=== PATIENT | female | born 1935 | race Caucasian/White ===

== ENCOUNTER 2020-05-10 11:32 | Observation (INO) | payer OTHER ==
[2020-05-10 11:50] VITALS: BMI 25.2
[2020-05-10] MEDS ORDERED: ACETAMINOPHEN 325 MG TABLET PO PRN (11:54)
[2020-05-10] MEDS ORDERED: LOPERAMIDE HCL 2 MG CAPSULE PO PRN (11:55)
[2020-05-10] MEDS ORDERED: DIPHENHYDRAMINE 25 MG TAB/CAP PO PRN (11:55)
[2020-05-10] MEDS ORDERED: ONDANSETRON 4 MG/2 ML VIAL IV PRN (11:55)
[2020-05-10] MEDS ORDERED: ONDANSETRON 4 MG (ODT) TAB PO PRN (11:57)
[2020-05-10] MEDS ORDERED: POLYETHYL GLY 3350 17 GM/DOSE PO PRN (11:57)
[2020-05-10] MEDS ORDERED: METHOCARBAMOL PO PRN (13:11)
[2020-05-10 13:46] LABS: Absolute Lymphocytes (CBC) 1.6 K/uL (0.7-4.9); Basophils % 0.7 % (0-1.3); Hematocrit 39.8 % (36.0-45.0); Lymphocytes % 25.2 % (15.3-44.8); MPV 8.7 fL (7.6-11.3); RBC Red Blood Cell Count 4.55 M/uL (3.86-4.86)
[2020-05-10 13:48] LABS: Protime INR 1.1
[2020-05-10 14:06] LABS: Albumin 3.8 g/dL (3.4-5.0); Bilirubin Direct 0.1 mg/dL (0-0.2); Bilirubin Total 0.6 mg/dL (0.2-1.0); C-Reactive Protein 13.8 mg/L (<3.00); Magnesium 2.2 mg/dL (1.8-2.4); Phosphorus 3.9 mg/dL (2.5-4.9); Potassium 4.2 mmol/L (3.5-5.1); Protein, Total 8.1 g/dL (6.4-8.2); Thyroid Stimulating Hormone 1.03 uIU/mL (0.360-3.740)
--- NOTE | 2020-05-10 15:04 | RAD REPORT ---
EXAM DESCRIPTION: CT - Chest For Pe Angio - 05/10/2020 2:35 pm CLINICAL HISTORY: sob COMPARISON: April 26, 2020 chest x-ray TECHNIQUE: Dynamically enhanced axial 3 mm thick images of the chest were obtained during administra tion of <100> mL Isovue 370 IV contrast. Coronal and oblique reconstruction images were generated and reviewed. Exam utilizes a protocol for optimal evaluation of pulmonary arterial tree. Maximum intensity projections 3D imaging was utilized All CT scans are performed using dose optimization technique as appropriate and may include automated exposure control or mA/KV adjustment according to patient size. FINDINGS: A pulmonary embolus is not seen. A thoracic aortic aneurysm is not noted. Main pulmonary artery appears mildly enlarged. This may ricardo quintin pulmonary arterial hypertension. The heart is enlarged A pleural effusion is not seen. A pericardial effusion is not seen. A lung consolidation is not present. IMPRESSION: Negative for a pulmonary embolism.
[2020-05-10 16:42] LABS: Urine Appearance CLEAR; Urine Bilirubin NEGATIVE (NEG); Urine Blood NEGATIVE (NEG); Urine Color YELLOW; Urine Glucose NEGATIVE (NEG); Urine Protein NEGATIVE (NEG); Urine Specific Gravity 1.025 (1.005-1.030); Urine Urobilinogen 0.2 mg/dL (0.2-1.0); Urine pH 6.5 (5.0-7.0)
[2020-05-10 16:45] LABS: Urine Microscopic Reflex ORDER UMIC
[2020-05-10 16:57] LABS: Urine Bacteria <20 /HPF (<20); Urine Mucus 1+ /HPF (NONE SEEN); Urine RBC <5 /HPF (NONE SEEN)
[2020-05-10] MEDS ORDERED: ENOXAPARIN 40 MG/0.4 ML SQ SCH (17:00)
[2020-05-10] MEDS ORDERED: DORZOLAMIDE HCL OP SCH (21:00)
[2020-05-10] MEDS ORDERED: CARVEDILOL PO SCH (21:00)
[2020-05-10] MEDS ORDERED: GABAPENTIN PO SCH (21:00)
[2020-05-10] MEDS: FUROSEMIDE 20 MG/ 2ML VIAL IV SCH (22:07)
[2020-05-11 05:38] LABS: Absolute Lymphocytes (CBC) 1.9 K/uL (0.7-4.9); Basophils % 0.9 % (0-1.3); Hematocrit 39.5 % (36.0-45.0); Lymphocytes % 32.9 % (15.3-44.8); MPV 8.5 fL (7.6-11.3); RBC Red Blood Cell Count 4.52 M/uL (3.86-4.86)
[2020-05-11 05:55] LABS: Magnesium 2.2 mg/dL (1.8-2.4); Potassium 4.2 mmol/L (3.5-5.1)
[2020-05-11] MEDS ORDERED: VIT C PO SCH (09:00)
[2020-05-11] MEDS ORDERED: HOME MED 1 EA UNK (Multivitamin [Multivitamins] 1 EACH) PO SCH (09:00)
[2020-05-11] MEDS ORDERED: SPIRONOLACTONE PO SCH (09:00)
[2020-05-11] MEDS ORDERED: MANGANESE PO SCH (09:00)
[2020-05-11] MEDS ORDERED: ASPIRIN 81 MG PO SCH (09:00)
[2020-05-11] MEDS ORDERED: HOME MED 1 EA UNK (Losartan Potassium [Losartan Potassium] 1 TAB) PO SCH (09:00)
[2020-05-11] MEDS ORDERED: CHONDRO SU A PO SCH (09:00)
--- NOTE | 2020-05-11 09:06 | RAD REPORT ---
EXAM DESCRIPTION: US - Abdomen Exam Complete - 05/11/2020 8:55 am CLINICAL HISTORY: Abdominal pain COMPARISON: none FINDINGS: The liver has a normal echotexture. Tiny echogenic structures present within the gallbladder. No posterior shadowing noted. The gallbladd er wall is not thickened. The biliary tree is normal caliber. The pancreas is normal in size and echotexture The right kidney measures 12 centimeters with a normal echotexture. Small cysts are present. 1.2 cent imeter hypoechoic structure is present. The left kidney measures 10 centimeters with a normal echotexture. The spleen measures 9 centimeters. The abdominal aorta has an AP diameter of 2.4 centimeters. An aneurysm is not seen. IVC unremarkable IMPRESSION: Tiny echogenic structure within the gallbladder could either represent a polyp or tiny s tone. No evidence of cholecystitis 1.2 centimeter hypoechoic structure right kidney most likely benign. Follow up renal ultrasound in 6 months recommended for re-evaluation
[2020-05-11] MEDS: FUROSEMIDE 20 MG/ 2ML VIAL IV SCH (09:29)
[2020-05-11 12:39] VITALS: O2SAT 97
[2020-05-11 18:56] VITALS: BP 117/68; TEMP 97.1
== END 2020-05-11 16:24 | disposition home or self-care (01) ==
LOC: 2ND 11:32
PROVIDERS: ADMIT Internal Medicine; ATTEND Internal Medicine
DX: R06.02 Shortness of breath (principal); R10.9 Unspecified abdominal pain; I11.0 Hypertensive heart disease with heart failure; I50.22 Chronic systolic (congestive) heart failure; Z20.828 Contact with and (suspected) exposure to other viral communicable diseases; M81.0 Age-related osteoporosis without current pathological fracture; E55.9 Vitamin D deficiency, unspecified; E78.2 Mixed hyperlipidemia; I42.0 Dilated cardiomyopathy; Z95.0 Presence of cardiac pacemaker
CPT/HCPCS: 87088; 85025 ×2; 87086; 80048 ×2; 36415; 83735 ×2; 84100; 85610; 85379; 80076; 85730; 85652; 84443; 83880; 86140; 71275; 76700; U0002; Q9967; J1940 ×2; J1650; G0378 ×3; 81003; 81015; G0379